=== PATIENT | male | born 1970 | race Caucasian/White ===

== ENCOUNTER 2016-11-29 22:59 | Emergency (ER) | payer MEDICAID, OTHER ==
[~2016-11-29] VITALS: Ht 162.6 cm; Wt 74.5 kg
[2016-11-30] MEDS ORDERED: DiphenhydrAMINE HCL 25 MG CAPSULE PO ONE (01:45)
[2016-11-30 01:47] VITALS: BP 136/86
== END 2016-11-30 01:51 | disposition home or self-care (01) ==
LOC: EMS 23:00
DX: T78.40XA Allergy, unspecified, initial encounter (principal); S90.562A Insect bite (nonvenomous), left ankle, initial encounter; S40.862A Insect bite (nonvenomous) of left upper arm, initial encounter; F17.210 Nicotine dependence, cigarettes, uncomplicated; F19.90 Other psychoactive substance use, unspecified, uncomplicated; W57.XXXA Bitten or stung by nonvenomous insect and other nonvenomous arthropods, initial encounter; Y93.89 Activity, other specified; Y92.89 Other specified places as the place of occurrence of the external cause; Y99.8 Other external cause status
CPT/HCPCS: 99282